=== PATIENT | female | born 1985 | race Caucasian/White ===

== ENCOUNTER 2021-01-25 12:09 | Emergency (ER) | payer OTHER ==
[~2021-01-25] VITALS: Ht 152.4 cm; Wt 89.0 kg
[2021-01-25] MEDS ORDERED: BENZ1LOZ60 MT (13:54)
[2021-01-25 14:07] VITALS: BP 118/70
== END 2021-01-25 14:07 | disposition home or self-care (01) ==
LOC: ER 13:03
DX: J06.9 Acute upper respiratory infection, unspecified (principal)
CPT/HCPCS: 87804; 99283